=== PATIENT | male | born 1945 | race Caucasian/White ===

== ENCOUNTER 2017-03-05 09:55 | Outpatient (CLI) | payer MEDICARE, OTHER | END 2017-03-05 09:56 | disposition home or self-care (01) | DX: I48.91 Unspecified atrial fibrillation (principal); I10 Essential (primary) hypertension; K21.9 Gastro-esophageal reflux disease without esophagitis; M10.9 Gout, unspecified; Z79.899 Other long term (current) drug therapy ==

== ENCOUNTER 2017-08-10 00:12 | Emergency (ER) | payer MEDICARE, OTHER ==
--- NOTE | 2017-08-10 01:14 | ED Physician Documentation ---
PD HPI HEENT - Stated complaint Stated Complaint: DENTAL PAIN - Chief complaint Chief Complaint: General - History obtained from History obtained from: Patient - History of Present Illness Timing - onset: Yesterday Timing - details: Gradual onset Pain level now: 8 Location: Tooth Improves: Nothing Associated symptoms: No: Fever Similar symptoms before: Has not had sx before - Additional information Additional information: recent dental extraction (3 days ago), had adequate relief with tylenol and ibuprofen, but since last night, gradually worsening uncontrolled pain and sensation of swelling at extraction site Review of Systems Constitutional: denies: Fever Throat: reports: Dental pain / toothache PD PAST MEDICAL HISTORY - Past Medical History Past Medical History: Yes Cardiovascular: Hypertension, Atrial flutter Respiratory: Pneumonia Neuro: None Endocrine/Autoimmune: None GI: GERD, Colon polyps : None HEENT: None Psych: None Musculoskeletal: Gout Derm: None - Past Surgical History Past Surgical History: Yes General: Cholecystectomy, Colonoscopy HEENT: Tonsil/Adenoidectomy - Present Medications Home Medications: Ambulatory Orders Medication Instructions Recorded Confirmed Aspirin [Aspir 81] 81 mg PO DAILY 05/09/14 10/26/14 Hydrochlorothiazide 12.5 mg PO DAILY 05/09/14 10/26/14 Indomethacin [Indocin] 25 mg PO TID PRN 05/09/14 10/26/14 Lisinopril 20 mg DAILY 05/09/14 10/26/14 Esomeprazole Magnesium [Nexium] 20 mg PO DAILY 10/26/14 10/26/14 Clindamycin HCl 300 mg PO Q6HR #27 capsule 08/10/17 Ondansetron HCl [Zofran] 4 mg PO Q6HR PRN #14 tablet 08/10/17 oxyCODONE/ACET 5/325 [Percocet 5 1 - 2 each PO Q6H PRN #20 tablet 08/10/17 mg/325 mg] - Allergies Allergies/Adverse Reactions: Allergies Allergy/AdvReac Type Severity Reaction Status Date / Time No Known Drug Allergies Allergy Verified 08/10/17 00:23 - Social History Does the pt smoke?: No Smoking Status: Never smoker Does the pt drink ETOH?: No Does the pt have substance abuse?: No - Immunizations Immunizations are current?: Yes - POLST Patient has POLST: No PD ED PE NORMAL - Vitals Vital signs reviewed: Yes - General General: Alert and oriented X 3, No acute distress, Well developed/nourished - HEENT HEENT: Moist mucous membranes - Neck Neck: Supple, no meningeal sign PD ED PE EXPANDED - HEENT HEENT: Dry socket (right maxillary first molar) Results - Vitals Vitals: Oxygen O2 Source Room air PD MEDICAL DECISION MAKING - ED course Complexity details: considered differential, d/w patient Departure - Departure Disposition: Home, Self Care Clinical Impression: Dry socket Condition: Good Instructions: ED Socket Dry Prescriptions: Clindamycin HCl 300 mg PO Q6HR #27 capsule Ondansetron HCl [Zofran] 4 mg PO Q6HR PRN #14 tablet PRN Reason: Nausea / Vomiting oxyCODONE/ACET 5/325 [Percocet 5 mg/325 mg] 1 - 2 each PO Q6H PRN #20 tablet PRN Reason: Pain Comments: You need to follow up with your dentist as soon as they can see you. Contact the office when they are next open. Discharge Date/Time: 08/10/17 02:35
[2017-08-10] MEDS ORDERED: oxyCODONE/ACET 5/325 Prepack 4 PO STA (01:53)
[2017-08-10] MEDS ORDERED: ONDANSETRON ODT 4 MG TABLET TL STA (01:53)
[2017-08-10] MEDS ORDERED: CLINDAMYCIN 150 MG CAPSULE PO STA (01:54)
[2017-08-10] MEDS ORDERED: oxyCODONE/ACET 5/325 Prepack 4 PO ONE (02:02)
[2017-08-10] MEDS ORDERED: ONDANSETRON ODT 4 MG TABLET ONE (02:26)
[2017-08-10] MEDS ORDERED: CLINDAMYCIN 150 MG CAPSULE PO ONE (02:27)
[2017-08-10 02:34] VITALS: BP 164/114
== END 2017-08-10 02:35 | disposition home or self-care (01) ==
LOC: ED 00:12
DX: M27.3 Alveolitis of jaws (principal); I10 Essential (primary) hypertension; Z79.82 Long term (current) use of aspirin
CPT/HCPCS: 99283; A9270; Q0162

== ENCOUNTER 2018-09-17 03:17 | Emergency (ER) | payer MEDICARE, OTHER ==
[2018-09-17] MEDS ORDERED: DEXAMETHASONE 10 MG/ML VIAL PO STA (03:51)
[2018-09-17] MEDS ORDERED: INDOMETHACIN 25 MG CAPSULE PO STA (04:23)
--- NOTE | 2018-09-17 04:23 | ED Physician Documentation ---
History of Present Illness - Stated complaint Stated Complaint: L FOOT PAIN - Chief complaint Chief Complaint: Ext Problem - History obtained from History obtained from: Patient - History of Present Illness Timing: How many days ago (3-4) - Additonal information Additional information: 73-year-old male with a long history of gout has had a recent flare several weeks ago and was on some indomethacin and following reduction in the flare he was started on allopurinol. This is his first excursion and allopurinol. He is now experienced a flare of his gout that is less painful and less obvious than his prior flares. He is in the emergency department this morning at 3:30 in the morning unable to sleep. He is recently started the allopurinol he is not takin g any anti-inflammatory at this time. Review of Systems Constitutional: denies: Fever, Chills Eyes: denies: Decreased vision Ears: denies: Ear pain Nose: denies: Congestion Throat: denies: Sore throat Cardiac: denies: Chest pain / pressure, Palpitations Respiratory: denies: Dyspnea, Cough GI: denies: Abdominal Pain, Nausea, Vomiting : denies: Dysuria, Frequency Skin: denies: Rash, Lesions Musculoskeletal: reports: Extremity pain, Joint pain, Pain with weight bearing. denies: Neck pain, Back pain Neurologic: denies: Generalized weakness, Focal weakness, Numbness PD PAST MEDICAL HISTORY - Past Medical History Past Medical History: Yes Cardiovascular: Hypertension, Atrial flutter Respiratory: Pneumonia Endocrine/Autoimmune: None GI: GERD, Colon polyps : None HEENT: None Psych: None Musculoskeletal: Gout Derm: None - Past Surgical History Past Surgical History: Yes General: Cholecystectomy, Colonoscopy HEENT: Tonsil/Adenoidectomy - Present Medications Home Medications: Ambulatory Orders Medication Instructions Recorded Confirmed Lisinopril 40 mg PO DAILY 05/09/14 09/17/18 Esomeprazole Magnesium [Nexium] 20 mg PO DAILY 10/26/14 09/17/18 Allopurinol 1 tab PO DAILY 09/17/18 09/17/18 Diltiazem HCl [Diltiazem 12Hr ER] 1 tab PO DAILY 09/17/18 09/17/18 Indomethacin 25 mg PO TID PRN #40 capsule 09/17/18 Rivaroxaban [Xarelto] 1 tab PO DAILY 09/17/18 09/17/18 amLODIPine [Norvasc] 1 tab PO DAILY 09/17/18 09/17/18 - Allergies Allergies/Adverse Reactions: Allergies Allergy/AdvReac Type Severity Reaction Status Date / Time No Known Drug Allergies Allergy Verified 09/17/18 03:26 - Social History Does the pt smoke?: No Smoking Status: Never smoker Does the pt drink ETOH?: No Does the pt have substance abuse?: No - Immunizations Immunizations are current?: Yes - POLST Patient has POLST: No PD ED PE NORMAL - Vitals Vital signs reviewed: Yes (hypertensive diastolic mild ) - General General: Alert and oriented X 3, No acute distress, Well developed/nourished - HEENT HEENT: Atraumatic, PERRL, EOMI - Respiratory Respiratory: No respiratory distress - Derm Derm: Normal color, Warm and dry, No rash - Extremities Extremities: No deformity, No edema, Other (tenderness to the distal 1st MT on the left foot. There is not much in the way of swelling of the joint or redness to the area. There is specific area of tenderness and no lymphangitic streak. ) - Neuro Neuro: Alert and oriented X 3, advertising rep 2-12 intact, No motor deficit, No sensory deficit, Normal speech Eye Opening: Spontaneous Motor: Obeys Commands Verbal: Oriented GCS Score: 15 - Psych Psych: Normal mood, Normal affect Results - Vitals Vitals: Vital Signs - 24 hr 09/17/18 03:22 Temperature 36.3 C L Heart Rate 89 Respiratory 16 Rate Blood Pressure 125/84 H O2 Saturation 97 Oxygen O2 Source Room air PD MEDICAL DECISION MAKING - ED course Complexity details: reviewed old records, considered differential, d/w patient ED course: 73-year-old male with a 20-year history of gout has recently been placed on allopurinol and he is not on any anti-inflammatory therapy right now. He does appear to have a mild inflammation of the left great toe consistent with a gout attack. 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 I discussed with him that it will take the better part of 1-2 years to entirely reduce his uric acid pool to where he can expect to have no attacks. I suspect will be easy to control his symptoms today. Here in the emergency department he is administered dexamethasone 10 mg orally and 50 mg of indomethacin. He is on an anticoagulant and will place him on 25 mg of indomethacin 3 times daily. Departure - Departure Disposition: 01 Home, Self Care Clinical Impression: Gout attack Qualifiers: Gout site: foot Gout etiology: idiopathic Laterality: left Qualified Code(s): M10.072 - Idiopathic gout, left ankle and foot Condition: Stable Instructions: ED Arthritis Gout, ED Diet Gout Follow-Up: Jayne Johnson MD [Primary Care Provider] - Prescriptions: Indomethacin 25 mg PO TID PRN #40 capsule PRN Reason: gout attack
[2018-09-17 04:38] VITALS: BP 146/89
== END 2018-09-17 04:35 | disposition home or self-care (01) ==
LOC: ED 03:17
DX: M10.072 Idiopathic gout, left ankle and foot (principal); I10 Essential (primary) hypertension; I48.92 Unspecified atrial flutter; Z79.01 Long term (current) use of anticoagulants
CPT/HCPCS: 99283; A9270

== ENCOUNTER 2020-08-02 13:54 | Outpatient (CLI) | payer MEDICARE, OTHER | END 2020-08-02 13:55 | disposition home or self-care (01) | LOC: COV 13:54 | PROVIDERS: ATTEND Family Medicine | DX: R05 Cough (principal); J02.9 Acute pharyngitis, unspecified; R09.81 Nasal congestion; Z20.828 Contact with and (suspected) exposure to other viral communicable diseases ==

== ENCOUNTER 2021-01-23 13:30 | Outpatient (CLI) | payer MEDICARE, OTHER ==
--- NOTE | 2021-01-23 14:30 | XRAY Report ---
PROCEDURE: Chest 2 View X-Ray INDICATIONS: COUGH TECHNIQUE: 2 view(s) of the chest. COMPARISON: None. FINDINGS: Surgical changes and devices: None. Lungs and pleura: No pleural effusions or pneumothorax. Lungs are clear. Mediastinum: Mediastinal contours are normal. Heart size is normal. Bones and chest wall: No suspicious bony abnormalities. Soft tissues appear unremarkable. IMPRESSION: Source of cough is not found. Reviewed by: Karthik Way MD on 01/23/2021 2:28 PM PDT Approved by: Karthik Way MD on 01/23/2021 2:28 PM PDT Station ID: [id number]
== END 2021-01-23 13:31 | disposition home or self-care (01) ==
LOC: DI 13:30
PROVIDERS: ATTEND Internal Medicine
DX: R05 Cough (principal)

== ENCOUNTER 2021-06-02 11:14 | Outpatient (CLI) | payer MEDICARE, OTHER | END 2021-06-02 11:15 | disposition critical access hospital (66) | LOC: EMS 11:14 | DX: R42 Dizziness and giddiness (principal); H53.8 Other visual disturbances | CPT/HCPCS: A0425; A0429 ==

== ENCOUNTER 2021-06-02 11:34 | Emergency (ER) | payer MEDICARE, OTHER ==
[2021-06-02 12:15] LABS: BASOPHILS # (AUTO) 0.1 10^3/uL (0.0-0.1); BASOPHILS % (AUTO) 0.7 %; EOSINOPHILS # (AUTO) 0.3 10^3/uL (0.0-0.7); EOSINOPHILS % (AUTO) 2.9 %; HGB - HEMOGLOBIN 17.3 g/dL (14.0-18.0); LYMPHOCYTES # (AUTO) 2.5 10^3/uL (1.5-3.5); MEAN CORPUSCULAR HEMOGLOBIN 32.7 pg (27.0-31.0); MEAN CORPUSCULAR HGB CONC 33.9 g/dL (32.0-36.0); MEAN CORPUSCULAR VOLUME 96.4 fL (80.0-94.0); MEAN PLATELET VOLUME 10.8 fL (7.4-11.4); MONOCYTES # (AUTO) 0.8 10^3/uL (0.0-1.0); NEUTROPHILS # (AUTO) 7.2 10^3/uL (1.5-6.6); NEUTROPHILS % (AUTO) 65.9 %; PLT - PLATELET COUNT 239 10^3/uL (130-450); RED BLOOD COUNT 5.29 10^6/uL (4.70-6.10); RED CELL DISTRIBUTION WIDTH 14.2 % (12.0-15.0); WHITE BLOOD COUNT 10.9 x10^3/uL (4.8-10.8)
--- NOTE | 2021-06-02 12:18 | ED Physician Documentation ---
History of Present Illness - Stated complaint Stated Complaint: VERTIGO - Chief complaint Chief Complaint: Neuro - Additonal information Additional information: 75-year-old male who has a history of atrial fib anticoagulated on Xarelto presents to the emergency department with multiple near syncopal episodes this morning. He reports that when he woke up and was in the washroom he felt like his vision was going black and that he may faint. He had a similar symptom when he was bending over to package pick up something from the ground. Often he will have pink dots in both of his visual faria. He denies that he is having chest pain or shortness of air. He denies that he feels like the room is spinning but he does find that sometimes the sensation of wanting to faint gets worse with exertion or when he turns his head. He denies chest pain, shortness of air. No unilateral leg swelling. Some nausea but no vomiting. No recent diarrhea or urinary symptoms. He is fully vaccinated for COVID-19. He has no history of similar in the past. He is a former smoker quitting 30 years ago. Denies alcohol or drug use. No focal neuro deficits. Speech is fluid Review of Systems Constitutional: denies: Fever, Chills Eyes: reports: Other (? scotom). denies: Loss of vision Ears: reports: Reviewed and negative Cardiac: reports: Reviewed and negative Respiratory: reports: Reviewed and negative GI: reports: Nausea. denies: Abdominal Pain, Vomiting, Diarrhea : reports: Reviewed and negative Skin: reports: Reviewed and negative Musculoskeletal: reports: Reviewed and negative PD PAST MEDICAL HISTORY - Past Medical History Cardiovascular: Hypertension, Atrial flutter Respiratory: Pneumonia Endocrine/Autoimmune: None GI: GERD, Colon polyps : None HEENT: None Psych: None Musculoskeletal: Gout Derm: None - Past Surgical History Past Surgical History: Yes General: Cholecystectomy, Colonoscopy HEENT: Tonsil/Adenoidectomy - Present Medications Home Medications: Ambulatory Orders Medication Instructions Recorded Confirmed Lisinopril 40 mg PO DAILY 05/09/14 06/02/21 Esomeprazole Magnesium [Nexium] 20 mg PO DAILY 10/26/14 06/02/21 Diltiazem HCl [Diltiazem 12Hr ER] 1 tab PO DAILY 09/17/18 06/02/21 Indomethacin 25 mg PO TID PRN #40 capsule 09/17/18 Rivaroxaban [Xarelto] 1 tab PO DAILY 09/17/18 06/02/21 allopurinoL [Allopurinol] 1 tab PO DAILY 09/17/18 06/02/21 amLODIPine [Norvasc] 1 tab PO DAILY 09/17/18 09/17/18 - Allergies Allergies/Adverse Reactions: Allergies Allergy/AdvReac Type Severity Reaction Status Date / Time No Known Drug Allergies Allergy Verified 06/02/21 11:48 - Social History Does the pt smoke?: No Smoking Status: Never smoker Does the pt drink ETOH?: No Does the pt have substance abuse?: No - Immunizations Immunizations are current?: Yes - POLST Patient has POLST: No PD ED PE EXPANDED - General General: Alert, No acute distress, Well developed/nourished - Neck Neck: Supple w/out meningeal sx. No: Adenopathy - Cardiac Cardiac: Irregularly irregular, Radial strong equal, Pedal strong equal, Cap refill < 2 sec. No: Murmur Present - Respiratory Respiratory: Clear to ausultation zoey. No: Distress, Labored - Abdomen Abdomen: Normal Bowel sounds. No: Tender to palpation - Derm Derm: Normal color, Warm and dry. No: Rash - Neuro Neuro: Alert and Oriented X 3, CNII-XII intact, Normal gait, Normal finger nose, Normal speech. No: Nystagmus - GCS Eye Opening: Spontaneous Motor: Obeys Commands Verbal: Oriented Total: 15 Results - Vitals Vitals: Vital Signs - 24 hr 06/02/21 06/02/21 06/02/21 11:37 12:28 13:14 Temperature 36.4 C L Heart Rate 74 76 Heart Rate [ Sitting] Heart Rate [ Standing] Heart Rate [ Supine] Respiratory 21 11 L Rate Blood Pressure 154/127 H 162/121 H Blood Pressure [Sitting] Blood Pressure [Standing] Blood Pressure [Supine] O2 Saturation 95 96 06/02/21 14:06 Temperature Heart Rate Heart Rate [ 93 Sitting] Heart Rate [ 90 Standing] Heart Rate [ 87 Supine] Respiratory Rate Blood Pressure Blood Pressure 172/107 H [Sitting] Blood Pressure 177/124 H [Standing] Blood Pressure 178/121 H [Supine] O2 Saturation Oxygen O2 Source Room air - EKG (time done) 1155 Rate: Rate (enter#) (81) Rhythm: Atrial fibrillation Intervals: Prolonged QT QRS: Normal Ischemia: Q waves (inferior) Compare to prior EKG: Unchanged from prior EKG Computer interpretation: Agree with computer - Labs Labs: Laboratory Tests 06/02/21 06/02/21 06/02/21 12:12 12:12 12:12 WBC 10.9 H RBC 5.29 Hgb 17.3 Hct 51.0 MCV 96.4 H MCH 32.7 H MCHC 33.9 RDW 14.2 Plt Count 239 MPV 10.8 Neut # (Auto) 7.2 H Lymph # (Auto) 2.5 [place] # (Auto) 0.8 Eos # (Auto) 0.3 Baso # (Auto) 0.1 Absolute Nucleated RBC 0.00 Nucleated RBC % 0.0 Sodium 137 Potassium 4.1 Chloride 108 Carbon Dioxide 23 Anion Gap 6.0 BUN 21 H Creatinine 1.1 Estimated GFR (MDRD) 65 L Glucose 114 H Calcium 9.3 Total Bilirubin 1.8 H AST 23 ALT 28 Alkaline Phosphatase 61 Troponin I High Sens B-Natriuretic Peptide 67 Total Protein 6.9 Albumin 3.9 Globulin 3.0 Albumin/Globulin Ratio 1.3 Lipase 23 06/02/21 12:12 WBC RBC Hgb Hct MCV MCH MCHC RDW Plt Count MPV Neut # (Auto) Lymph # (Auto) [place] # (Auto) Eos # (Auto) Baso # (Auto) Absolute Nucleated RBC Nucleated RBC % Sodium Potassium Chloride Carbon Dioxide Anion Gap BUN Creatinine Estimated GFR (MDRD) Glucose Calcium Total Bilirubin AST ALT Alkaline Phosphatase Troponin I High Sens 6.4 B-Natriuretic Peptide Total Protein Albumin Globulin Albumin/Globulin Ratio Lipase - Rads (name of study) angio neck Radiology: Final report received (Potential dissection flap seen within the left carotid artery though patient does not have a history of carotid enterectomy. Differential diagnosis also includes flow artifact.) angio head Radiology: Final report received (No intracranial hemorrhage is seen. No significant intracranial abnormality is seen. No imaging explanation is found for the patient's presenting symptoms.) cxr Radiology: Final report received (no acute cardiopulmonary process) us carotid Radiology: See rad report, Other (per UStechnologist no significant stenosis is seen. No findings suggestive of carotid dissection.) PD MEDICAL DECISION MAKING - ED course Complexity details: reviewed results, re-evaluated patient ED course: 75-year-old male presents to the emergency department for evaluation of multiple near syncopal episodes this morning in which he felt like his vision was going black. However he also had episodes of scotoma in his bilateral visual faria. He does have a history of atrial fibrillation and is on Xarelto. He did not have any apparent focal neuro deficits. EKG was non-ischemic showing previously noted atrial fib. Screening labs indicate that he is likely somewhat dehydrated given concentrated hemogram as well as elevated BUN. Patient was repleted with 2 L of crystalloid here in the emergency department. Orthostatic vital signs were completed without any orthostatic changes. CT angio of the head and neck did not show any lesions or bleeding however there was concern that he could have a carotid dissection of the left carotid artery. The radiologist thought he may have had a previous carotid enterectomy but the patient denies this history. In order to ascertain if there is in fact a carotid dissection and ultrasound of the carotid arteries will be completed. 1630: Ultrasound bilateral carotids has been completed. Per medical office technologist no findings for significant stenosis and no findings to suggest carotid dissection. This gentleman was ambulated in the hallway with no difficulty. He had no return of the symptoms suggestive of presyncope. I do suspect that he was likely dehydrated given the hemoconcentration of his hemoglobin as well as elevated BUN. Again he has been repleted with 2 L of fluid here in the emergency department. I recommended close follow-up with his primary care provider at home. I did recommend an outpatient echocardiogram to be completed within the next week to 2. Patient is to return to the ER for worsening symptoms or any syncopal episodes development of chest pain or shortness of air. Departure - Departure Disposition: 01 Home, Self Care Clinical Impression: Near syncope Condition: Stable Record reviewed to determine appropriate education?: Yes Instructions: ED Near Syncope Unkn Comments: You were seen in the ER today for near fainting episodes. The CT angiograms of your head did not show any worrisome findings. We did do an ultrasound of your carotid arteries to make sure that there was no dissection or aneurysm development of the carotid arteries and that was also negative. Your labs indicated that you are likely fairly dehydrated which is the most likely cause of your near fainting episodes. Please try and stay well-hydrated at home. Your urine should be a pale yellow. Try to drink at least 2 L of fluid a day if you are able. These follow-up with Dr. Johnson next week. I do recommend that you get an outpatient echocardiogram of your heart. If at any point you have development of chest pain, have any fainting episodes or feel that your symptoms are worsening please return to the ER for a second evaluation.
[2021-06-02 12:30] LABS: ALBUMIN 3.9 g/dL (3.2-5.5); ALBUMIN/GLOBULIN RATIO 1.3 (1.0-2.2); BILIRUBIN,TOTAL 1.8 mg/dL (0.2-1.0); CALCIUM 9.3 mg/dL (8.5-10.3); CREATININE 1.1 mg/dL (0.6-1.2); POTASSIUM 4.1 mmol/L (3.5-5.0); TOTAL PROTEIN 6.9 g/dL (6.7-8.2)
--- NOTE | 2021-06-02 12:54 | XRAY Report ---
PROCEDURE: Chest 1 View X-Ray INDICATIONS: Chest Pain TECHNIQUE: One view of the chest was acquired. COMPARISON: 01/23/2021 FINDINGS: Surgical changes and devices: None. Lungs and pleura: No pleural effusions or pneumothorax. Low lung volumes. Scattered subsegmental s carring/atelectasis. No acute consolidation. Mediastinum: Mediastinal contours appear normal. Heart size is normal. Bones and chest wall: No suspicious bony lesions. Overlying soft tissues appear unremarkable. IMPRESSION: Scattered subsegmental scarring/atelectasis. No acute consolidation. Low lung volumes. Reviewed by: Tyler Khalil MD on 06/02/2021 12:52 PM PDT Approved by: Tyler Khalil MD on 06/02/2021 12:52 PM PDT Station ID: [id number]
[2021-06-02] MEDS: SODIUM CHLORIDE 0.9% 1,000 ML IV STA ×2 (13:08→14:09)
[2021-06-02] MEDS: IOPAMIDOL-300 100 ML VIAL IVP ONE (13:15)
--- NOTE | 2021-06-02 13:31 | CT Report ---
PROCEDURE: ANGIO HEAD W/WO INDICATIONS: L sided facial droop CONTRAST: IV CONTRAST: Isovue 300 ml: 80 PO CONTRAST: *NO PO CONTRAST TECHNIQUE: Precontrast 4.5 mm thick angled axial sections acquired from the foramen magnum to the vertex. Afte r the administration of intravenous contrast, 1 mm thick sections acquired through the [place] is. Postcontrast 4.5 mm thick sections then re-acquired from the foramen magnum to the vertex. 3-di mensional [id number] (MIP) and/or volume rendering reformats were acquired of the c entral intracranial vasculature. For radiation dose reduction, the following was used: automated ex posure control, adjustment of mA and/or kV according to patient size. COMPARISON: Correlation is made with the accompanying neck CT angiogram, 06/02/2021. FINDINGS: Image quality: There is streak artifact seen through the skull base. Anterior circulation: Intracranial internal carotid arteries are normal in size and flow. The flow within the paired anterior cerebral arteries is normal and symmetric. The flow within the middle cer ebral arteries is normal and symmetric. The anterior communicating artery is seen. No aneurysms are seen. Posterior circulation: Visualized portions of the vertebral arteries demonstrate normal caliber. Th e right vertebral artery largely terminates in the right posterior inferior cerebral artery. There is a normal appearing basilar artery. Incidental note is made of a prominent left posterior communicat ing artery, with a diminutive left P1 segment. This is attributed to a type origin of the left posterior cerebral artery, which is considered to be a developmental variant of typically no clinical consequence. Flow within the posterior cerebral arteries is normal and symmetric. No aneurysms ar e seen. CSF spaces: Ventricles are normal in size and shape. Basal cisterns are patent. No extra-axial flu id collections. Brain: No midline shift. No intracranial bleeds or masses. Resendiz-white matter interface appears int act. In this patient with this given history, scrutiny is given to the course of the left facial nerves, i ncluding within the left parotid gland. No masses or abnormal enhancement can be seen to the limits o f CT within these regions. Skull and face: Calvarium and facial bones appear intact, without suspicious lesions. Sinuses: Visualized sinuses and mastoids are clear. IMPRESSION: No intracranial hemorrhage is seen. No significant intracranial abnormality is seen. No imaging explanation is found for the patient's presenting symptoms. No luis facial nerve abnormal ities or parotid masses can be seen. If it would be helpful for clinical management decision making, please consider a dedicated brain MRI (IAC protocol, without and with contrast) for further evaluation (assuming that there is no contrain dication). [place] developmental anomalies are incidentally noted, which are not considered to be clini makayla significant. Note: Case discussed by telephone with Estela Mitchell at 12:27 PM [place] time on 06/02/2021. Reviewed by: Cristian Carrasco MD on 06/02/2021 12:30 PM ESTEFANÍA Approved by: Cristian Carrasco MD on 06/02/2021 12:30 PM [id number] Station ID: [id number]
--- NOTE | 2021-06-02 13:34 | CT Report ---
PROCEDURE: ANGIO NECK W INDICATIONS: L sided facial droop, L neck pain CONTRAST: IV CONTRAST: Isovue 300 ml: 80 PO CONTRAST: *NO PO CONTRAST TECHNIQUE: After the administration of intravenous contrast, 1.5 mm axial sections acquired from the aortic arch to the [place]. Coronal 3-D maximum intensity projection (MIP) and/or volume rendering ref ormats were then performed. For radiation dose reduction, the following was used: automated exposur e control, adjustment of mA and/or kV according to patient size. COMPARISON: Correlation is made with the accompanying head CT angiogram, 06/02/2021. FINDINGS: Image quality: Excellent. Carotid system: The great vessels demonstrate a conventional anatomy as they arise from the aortic a rch. The origins of the common carotid arteries appear patent. The common carotid arteries demonstr ate normal calibers and courses. There is apparent left carotid endarterectomy. Within the carotid endarterectomy site, there is a pot ential dissection flap seen, as on series 5 image 67. Flow is seen on both sides of the apparent diss ection flap. Just distal to the apparent carotid endarterectomy change, there is approximately 50% st enosis, as on series 5 image 72. The right internal carotid artery demonstrates no significant stenosis. Posterior circulation: The origins of the vertebral arteries appear patent. The more superior porti ons of the vertebral arteries demonstrate normal course and caliber. The left vertebral artery is dom inant to the right. Soft tissues: Visualized neck soft tissues demonstrate no suspicious abnormalities. The thyroid is normal in size and there are no incidental findings. Bones: No suspicious bony lesions. Visualized cervical spine appears normally aligned. Moderate ce rvical spine degenerative changes are seen. IMPRESSION: Apparent left carotid endarterectomy, with a potential dissection flap seen within the endarterectomy bed. Differential diagnosis would also include flow artifact. Note: Case discussed by telephone with Emily Mitchell at 12:27 PM [place] time on 06/02/2021. The estimate of stenosis included in the report of the imaging study was calculated using the NASCET method Reviewed by: Cristian Carrasco MD on 06/02/2021 12:32 PM AKDT Approved by: Cristian Carrasco MD on 06/02/2021 12:32 PM AKDT Station ID: [id number]
[2021-06-02 14:27] VITALS: BP 178/121
--- NOTE | 2021-06-02 16:57 | Ultrasound Report ---
PROCEDURE: Carotid Doppler Complete INDICATIONS: ? dissection on CTA left carotid TECHNIQUE: Color and pulse Doppler interrogation was performed of both carotid systems, with image documentation and velocity measurements. COMPARISON: CTA head and neck from the same date. FINDINGS: Bilateral plaque is present without hemodynamically significant stenosis. Right side: Brachial blood pressure: 163/133 mm Hg. Common carotid artery peak systolic velocity: 73.5 cm/sec. Internal carotid artery peak systolic velocity: 54.6 cm/sec. Internal carotid artery end diastolic velocity: 24.7 cm/sec. External carotid artery peak systolic velocity: 56.4 cm/sec. ICA/CCA peak systolic ratio: 0.7 . Resendiz scale imaging description: Mild plaque without significant stenosis. Percent internal carotid artery stenosis: Mild, less than 50% . Vertebral artery: Flow direction is antegrade. Left side: Brachial blood pressure: 160/133 mm Hg. Common carotid artery peak systolic velocity: 114.9 cm/sec. Internal carotid artery peak systolic velocity: 48.7 cm/sec. Internal carotid artery end diastolic velocity: 21.6 cm/sec. External carotid artery peak systolic velocity: 42.9 cm/sec. ICA/CCA peak systolic ratio: 0.4 . Resendiz scale imaging description: Mild plaque without significant stenosis. Specifically, no dissectio n noted. Percent internal carotid artery stenosis: Mild, less than 50% . Vertebral artery: Flow direction is antegrade. IMPRESSION: No evidence of left carotid dissection. Mild bilateral plaque. Less than 50% bilateral internal carot id artery stenosis. The estimate of stenosis included in the report of the imaging study was calculated using the NASCET method Reviewed by: Refugio Amos MD on 06/02/2021 4:55 PM PDT Approved by: Refugio Amos MD on 06/02/2021 4:55 PM PDT Station ID: [id number]
== END 2021-06-02 17:03 | disposition home or self-care (01) ==
LOC: EDUNIT# → ED 11:34
DX: R55 Syncope and collapse (principal); I48.91 Unspecified atrial fibrillation; Z79.01 Long term (current) use of anticoagulants
CPT/HCPCS: 36415; 70496; 70498; 71045; 80053; 83690; 83880; 84484; 85025; 93005; 93880; 99284; Q9967

== ENCOUNTER 2021-06-05 08:43 | Emergency (ER) | payer MEDICARE, OTHER ==
[2021-06-05 09:21] LABS: BASOPHILS # (AUTO) 0.1 10^3/uL (0.0-0.1); BASOPHILS % (AUTO) 0.5 %; EOSINOPHILS # (AUTO) 0.4 10^3/uL (0.0-0.7); EOSINOPHILS % (AUTO) 3.6 %; HCT - HEMATOCRIT 51.7 % (42.0-52.0); HGB - HEMOGLOBIN 17.4 g/dL (14.0-18.0); LYMPHOCYTES # (AUTO) 2.7 10^3/uL (1.5-3.5); LYMPHOCYTES % (AUTO) 24.6 %; MEAN CORPUSCULAR HEMOGLOBIN 32.3 pg (27.0-31.0); MEAN CORPUSCULAR HGB CONC 33.7 g/dL (32.0-36.0); MEAN CORPUSCULAR VOLUME 96.1 fL (80.0-94.0); MEAN PLATELET VOLUME 10.9 fL (7.4-11.4); MONOCYTES # (AUTO) 0.9 10^3/uL (0.0-1.0); MONOCYTES % (AUTO) 8.3 %; NEUTROPHILS # (AUTO) 6.9 10^3/uL (1.5-6.6); NEUTROPHILS % (AUTO) 62.5 %; PLT - PLATELET COUNT 251 10^3/uL (130-450); RED BLOOD COUNT 5.38 10^6/uL (4.70-6.10); RED CELL DISTRIBUTION WIDTH 14.4 % (12.0-15.0)
--- NOTE | 2021-06-05 09:32 | XRAY Report ---
PROCEDURE: Chest 1 View X-Ray INDICATIONS: Chest pain TECHNIQUE: One view of the chest was acquired. COMPARISON: 06/02/2021 FINDINGS: Surgical changes and devices: None. Lungs and pleura: No pleural effusions or pneumothorax. Submaximal inspiration. Patchy bibasilar ate lectasis and possible patchy bilateral infiltrates. Mediastinum: Mediastinal contours appear normal. Heart size is normal. Bones and chest wall: No suspicious bony lesions. Overlying soft tissues appear unremarkable. IMPRESSION: Post reduction. Patchy bibasilar atelectasis and possible patchy bibasilar infiltrates. Comment: If there is clinical suspicion of viral pneumonia, chest CT may be helpful. Reviewed by: Refugio Amos MD on 06/05/2021 9:31 AM PDT Approved by: Refugio Amos MD on 06/05/2021 9:31 AM PDT Station ID: [id number]
[2021-06-05 09:37] LABS: ALBUMIN 3.9 g/dL (3.2-5.5); ALBUMIN/GLOBULIN RATIO 1.2 (1.0-2.2); BILIRUBIN,TOTAL 0.9 mg/dL (0.2-1.0); CALCIUM 9.2 mg/dL (8.5-10.3); CREATININE 1.3 mg/dL (0.6-1.2); POTASSIUM 4.1 mmol/L (3.5-5.0); TOTAL PROTEIN 7.1 g/dL (6.7-8.2)
[2021-06-05] MEDS: SODIUM CHLORIDE 0.9% 1,000 ML IV STA (10:26)
[2021-06-05] MEDS: diazePAM INJ 5 MG/ML SYRINGE IVP STA (10:26)
[2021-06-05] MEDS: MECLIZINE 12.5 MG TABLET PO STA (10:34)
--- NOTE | 2021-06-05 10:36 | ED Physician Documentation ---
History of Present Illness - Stated complaint Stated Complaint: DIZZY - Chief complaint Chief Complaint: Neuro - History obtained from History obtained from: Patient - Additonal information Additional information: Patient comes to the emergency department with chief complaint of dizziness. He was just seen here a few days ago for this, but thinks that he perhaps described his symptoms wrong. He states that really, his symptoms are a spinning when he turns his head, changes position, or stands up. He states as long as he is sitting still, he feels fine. He states he has tinnitus in his left ear which is also new. He has never had any of the symptoms before a few weeks ago. Patient denies any recent illness. He was worked up extensively last time he was here, including was CTAs of the head and neck and ultrasound of the carotids. The patient states that he has to struggle to get his bearings when he moves because the vertigo is so intense. Nausea vomiting. No headache. No focal weakness. No visual changes. No other complaints at this time. Review of Systems Ten Systems: 10 systems reviewed and negative Constitutional: reports: Reviewed and negative Eyes: reports: Reviewed and negative Ears: reports: Reviewed and negative Nose: reports: Reviewed and negative Throat: reports: Reviewed and negative Cardiac: reports: Reviewed and negative Respiratory: reports: Reviewed and negative GI: reports: Reviewed and negative : reports: Reviewed and negative Skin: reports: Reviewed and negative Musculoskeletal: reports: Reviewed and negative Neurologic: reports: Other (Dizziness) Psychiatric: reports: Reviewed and negative Endocrine: reports: Reviewed and negative Immunocompromised: reports: Reviewed and negative PD PAST MEDICAL HISTORY - Past Medical History Cardiovascular: Hypertension, Atrial flutter Respiratory: Pneumonia Endocrine/Autoimmune: None GI: GERD, Colon polyps : None HEENT: None Psych: None Musculoskeletal: Gout Derm: None - Past Surgical History Past Surgical History: Yes General: Cholecystectomy, Colonoscopy HEENT: Tonsil/Adenoidectomy - Present Medications Home Medications: Ambulatory Orders Medication Instructions Recorded Confirmed Lisinopril 40 mg PO DAILY 05/09/14 06/05/21 Esomeprazole Magnesium [Nexium] 20 mg PO DAILY 10/26/14 06/05/21 Diltiazem HCl [Diltiazem 12Hr ER] 1 tab PO DAILY 09/17/18 06/05/21 Indomethacin 25 mg PO TID PRN #40 capsule 09/17/18 06/05/21 Rivaroxaban [Xarelto] 1 tab PO DAILY 09/17/18 06/05/21 allopurinoL [Allopurinol] 1 tab PO DAILY 09/17/18 06/05/21 amLODIPine [Norvasc] 1 tab PO DAILY 09/17/18 06/05/21 Meclizine HCl [Motion Sickness] 25 mg PO Q6HR PRN #20 tablet 06/05/21 - Allergies Allergies/Adverse Reactions: Allergies Allergy/AdvReac Type Severity Reaction Status Date / Time No Known Drug Allergies Allergy Verified 06/05/21 09:06 - Social History Does the pt smoke?: No Smoking Status: Never smoker Does the pt drink ETOH?: No Does the pt have substance abuse?: No - Immunizations Immunizations are current?: Yes - POLST Patient has POLST: No PD ED PE NORMAL - Vitals Vital signs reviewed: Yes - General General: Alert and oriented X 3, No acute distress, Well developed/nourished - HEENT HEENT: Atraumatic, PERRL, EOMI, Moist mucous membranes - Neck Neck: Supple, no meningeal sign - Cardiac Cardiac: RRR, No murmur, Strong equal pulses - Respiratory Respiratory: No respiratory distress, Clear bilaterally - Abdomen Abdomen: Soft, Non tender, Non distended - Derm Derm: Normal color, Warm and dry, No rash - Extremities Extremities: No deformity, No edema, No calf tenderness / cord - Neuro Neuro: Alert and oriented X 3, boilermaker assembly and erection 2-12 intact, No motor deficit, No sensory deficit, Normal speech - Psych Psych: Normal mood, Normal affect Results - Vitals Vitals: Vital Signs - 24 hr 06/05/21 06/05/21 06/05/21 08:45 09:42 10:10 Temperature 36 C L Heart Rate 81 81 74 Respiratory 16 10 L 13 Rate Blood Pressure 152/103 H 145/107 H 142/113 H O2 Saturation 95 95 97 06/05/21 06/05/21 11:24 11:47 Temperature Heart Rate 61 86 Respiratory 15 11 L Rate Blood Pressure 144/102 H 139/98 H O2 Saturation 95 98 Oxygen O2 Source Room air - Labs Labs: Laboratory Tests 06/05/21 06/05/21 06/05/21 09:15 09:15 09:15 WBC 11.0 H RBC 5.38 Hgb 17.4 Hct 51.7 MCV 96.1 H MCH 32.3 H MCHC 33.7 RDW 14.4 Plt Count 251 MPV 10.9 Neut # (Auto) 6.9 H Lymph # (Auto) 2.7 [place] # (Auto) 0.9 Eos # (Auto) 0.4 Baso # (Auto) 0.1 Absolute Nucleated RBC 0.00 Nucleated RBC % 0.0 Sodium 139 Potassium 4.1 Chloride 109 Carbon Dioxide 22 Anion Gap 8.0 BUN 22 H Creatinine 1.3 H Estimated GFR (MDRD) 54 L Glucose 106 H Calcium 9.2 Total Bilirubin 0.9 AST 24 ALT 32 Alkaline Phosphatase 69 Troponin I High Sens 8.1 Total Protein 7.1 Albumin 3.9 Globulin 3.2 Albumin/Globulin Ratio 1.2 Lipase 26 PD MEDICAL DECISION MAKING - ED course Complexity details: reviewed old records, reviewed results, re-evaluated patient, considered differential, d/w patient ED course: Patient was sent treated symptomatically with IV fluids, meclizine and Valium, after which he was found to beeling much better. He was able to ambulate with his walker. We have discussed symptomatic management at home and the usual indications for return. Departure - Departure Disposition: 01 Home, Self Care Clinical Impression: Benign positional vertigo Condition: Stable Instructions: ED BPV Vertigo Prescriptions: Meclizine HCl [Motion Sickness] 25 mg PO Q6HR PRN #20 tablet PRN Reason: Vertigo Comments: All of your studies from a few days ago and today look good. You have been given medicine to help with your vertigo, which is most likely coming from your inner ear. Please take the medication as needed. You should follow-up with your primary care physician for further evaluation if you continue to have vertigo for more than the next couple of weeks. Discharge Date/Time: 06/05/21 12:06
[2021-06-05 11:48] VITALS: BP 139/98
== END 2021-06-05 12:06 | disposition home or self-care (01) ==
LOC: ED 08:43
DX: H81.10 Benign paroxysmal vertigo, unspecified ear (principal)
CPT/HCPCS: 36415; 71045; 80053; 83690; 84484; 85025; 93005; 96374; 99284; A9270

== ENCOUNTER 2021-09-05 06:49 | Outpatient (CLI) | payer MEDICARE, OTHER ==
[2021-09-05 07:29] LABS: BASOPHILS # (AUTO) 0.1 10^3/uL (0.0-0.1); BASOPHILS % (AUTO) 0.6 %; EOSINOPHILS # (AUTO) 0.3 10^3/uL (0.0-0.7); EOSINOPHILS % (AUTO) 2.7 %; HCT - HEMATOCRIT 52.8 % (42.0-52.0); HGB - HEMOGLOBIN 17.6 g/dL (14.0-18.0); LYMPHOCYTES # (AUTO) 3.1 10^3/uL (1.5-3.5); LYMPHOCYTES % (AUTO) 25.3 %; MEAN CORPUSCULAR HGB CONC 33.3 g/dL (32.0-36.0); MEAN CORPUSCULAR VOLUME 98.9 fL (80.0-94.0); MEAN PLATELET VOLUME 10.8 fL (7.4-11.4); MONOCYTES # (AUTO) 0.9 10^3/uL (0.0-1.0); MONOCYTES % (AUTO) 7.6 %; NEUTROPHILS # (AUTO) 7.8 10^3/uL (1.5-6.6); NEUTROPHILS % (AUTO) 63.2 %; PLT - PLATELET COUNT 282 10^3/uL (130-450); RED BLOOD COUNT 5.34 10^6/uL (4.70-6.10); RED CELL DISTRIBUTION WIDTH 14.6 % (12.0-15.0); WHITE BLOOD COUNT 12.3 x10^3/uL (4.8-10.8)
[2021-09-05 07:46] LABS: ALBUMIN 4.2 g/dL (3.2-5.5); ALBUMIN/GLOBULIN RATIO 1.3 (1.0-2.2); ALKALINE PHOSPHATASE 69 IU/L (42-121); ALT ALANINE AMINOTRANSFERASE 27 IU/L (10-60); AST ASPARTATE AMINOTRANSFERASE 21 IU/L (10-42); BILIRUBIN,TOTAL 1.2 mg/dL (0.2-1.0); BUN - BLOOD UREA NITROGEN 24 mg/dL (6-20); CALCIUM 9.6 mg/dL (8.5-10.3); CARBON DIOXIDE - CO2 25 mmol/L (21-32); CHLORIDE 106 mmol/L (101-111); CHOL/HDL RATIO 5.7 (<5.0); CHOLESTEROL 188 mg/dL; CREATININE 1.2 mg/dL (0.6-1.2); GFR - MDRD 59 (>89); GLUCOSE 118 mg/dL (70-100); HDL CHOLESTEROL 33 mg/dL; LDL CHOLESTEROL,CALCULATED 124 mg/dL; LDL/HDL RATIO 3.8 (<3.6); POTASSIUM 4.3 mmol/L (3.5-5.0); SODIUM 141 mmol/L (135-145); TOTAL PROTEIN 7.4 g/dL (6.7-8.2); TRIGLYCERIDES 156 mg/dL; VLDL CHOLESTEROL 31 mg/dL
[2021-09-05 07:58] LABS: THYROID STIMULATING HORMONE 2.59 uIU/mL (0.34-5.60)
[2021-09-05 08:09] LABS: FOLATE 24.73 ng/mL (5.90 - >24.8)
[2021-09-05 09:20] LABS: ESTIMATED AVERAGE GLUCOSE 128 mg/dL (70-100); HEMOGLOBIN A1c% 6.1 % (4.27-6.07)
== END 2021-09-05 06:50 | disposition home or self-care (01) ==
LOC: LAB.S 06:49 → LAB 06:50
PROVIDERS: ATTEND Internal Medicine
DX: I10 Essential (primary) hypertension (principal); R20.0 Anesthesia of skin; Z79.899 Other long term (current) drug therapy; R73.9 Hyperglycemia, unspecified; K21.9 Gastro-esophageal reflux disease without esophagitis; M10.9 Gout, unspecified; D75.89 Other specified diseases of blood and blood-forming organs
CPT/HCPCS: 36415; 80053; 80061; 82607; 82746; 83036; 83721; 84443; 85025

== ENCOUNTER 2021-11-17 12:46 | Day surgery (SDC) | payer MEDICARE, OTHER ==
[2021-11-17] MEDS ORDERED: LACTATED RINGERS 1,000 ML IV ONE ×2 (12:52→14:02)
--- NOTE | 2021-11-17 13:38 | ANESTHESIA ---
Pre-Anesthesia VS, & Labs - Diagnosis GERD - Procedure EGD Vital Signs: Temp Pulse Resp BP Pulse Ox 36.0 C L 84 13 158/119 H 97 11/17/21 13:04 11/17/21 13:04 11/17/21 13:04 11/17/21 13:04 11/17/21 13:04 Height: 6 ft 2 in Weight (kg): 99.2 kg Body Mass Index: 28.0 BMI Classification: Overweight - NPO >8 hours - Lab Results Lab results reviewed: Yes Home Medications and Allergies Lisinopril 40 mg PO DAILY 05/09/14 Esomeprazole Magnesium [Nexium] 20 mg PO DAILY 10/26/14 Diltiazem HCl [Diltiazem 12Hr ER] 1 tab PO DAILY 09/17/18 Rivaroxaban [Xarelto] 1 tab PO DAILY 09/17/18 allopurinoL [Allopurinol] 1 tab PO DAILY 09/17/18 amLODIPine [Norvasc] 1 tab PO DAILY 09/17/18 Allergies/Adverse Reactions: Allergies Allergy/AdvReac Type Severity Reaction Status Date / Time No Known Drug Allergies Allergy Verified 11/17/21 13:15 Anes History & Medical History - Anesthetic History Anesthesia Complications: reports: No previous complications Family history of Anesthesia Complications: Denies Family history of Malignant Hyperthermia: Denies - Medical History Cardiovascular: reports: Atrial fibrillation Pulmonary: reports: None Gastrointestinal: reports: GERD Urinary: reports: None Musculoskeletal: reports: None Endocrine/Autoimmune: reports: None Skin: reports: None Smoking Status: Never smoker - Surgical History General: reports: Cholecystectomy, Appendectomy Eyes Ears Nose Throat (EENT): reports: Tonsil/Adenoidectomy Exam General: Alert, Oriented x3, Cooperative, No acute distress Dental: Poor dentition Mouth Openin Fingerbreadth Neck Mobility: Normal Mallampati classification: II Plan Anesthesia Type: General, Total IV Consent for Procedure(s) Verified and Reviewed: Yes Code Status: Attempt Resuscitation ASA classification: 3-Severe systemic disease Is this case an emergency?: No
[2021-11-17] MEDS ORDERED: PROPOFOL 200 MG/20 ML VIAL IVP ONE (13:42)
[2021-11-17] MEDS ORDERED: LIDOCAINE-MPF 2% 5 ML VIAL ONE (13:42)
[2021-11-17] MEDS ORDERED: ePHEDrine 50 MG/ML VIAL IVP ONE (13:43)
[2021-11-17] MEDS ORDERED: GLYCOPYRROLATE 1 MG/5 ML VIAL ONE (13:43)
[2021-11-17 14:41] VITALS: BP 144/114
--- NOTE | 2021-11-17 17:59 | ANESTHESIA POST OP EVALUATION ---
Anesthesia Post Eval - Post Anesthesia Eval Vitals: Last Vital Signs Temp 36 C L 11/17/21 14:30 Pulse 88 11/17/21 14:30 Resp 16 11/17/21 14:30 BP 144/114 H 11/17/21 14:30 Pulse Ox 95 11/17/21 14:30 CV Function Including HR & BP: Stable Pain Control: Satisfactory Nausea & Vomiting: Negative Mental Status: Baseline Respiratory Status: Airway Patent Hydration Status: Satisfactory Anesthesia Complications: None
== END 2021-11-17 12:47 | disposition home or self-care (01) ==
LOC: SDS 12:46
PROVIDERS: ATTEND Surgery
PROC: 0DB38ZX Excision of Lower Esophagus, Via Natural or Artificial Opening Endoscopic, Diagnostic (ICD-10-PCS; principal; 2021-11-17 14:30)
DX: K21.9 Gastro-esophageal reflux disease without esophagitis (principal); K31.7 Polyp of stomach and duodenum; K44.9 Diaphragmatic hernia without obstruction or gangrene; I48.91 Unspecified atrial fibrillation; R53.83 Other fatigue
CPT/HCPCS: 43239; J7120

== ENCOUNTER 2022-01-26 07:20 | Day surgery (SDC) | payer MEDICARE, OTHER ==
[~2022-01-26 07:20] MED LIST: LACTATED RINGERS 1,000 ML IV ONE
[2022-01-26] MEDS ORDERED: PROPOFOL 500 MG/50 ML 500 MG/50 ML VIAL ONE (07:58)
--- NOTE | 2022-01-26 08:16 | ANESTHESIA ---
Pre-Anesthesia VS, & Labs - Diagnosis positive cologuard - Procedure colonoscopy Vital Signs: Temp Pulse Resp BP Pulse Ox 36 C L 95 20 160/110 H 97 01/26/22 07:32 01/26/22 07:32 01/26/22 07:32 01/26/22 07:32 01/26/22 07:32 Height: 6 ft 2 in Weight (kg): 98 kg Body Mass Index: 27.7 BMI Classification: Overweight - NPO >8 hours - Lab Results Lab results reviewed: Yes Home Medications and Allergies Lisinopril 40 mg PO DAILY 05/09/14 Esomeprazole Magnesium [Nexium] 20 mg PO DAILY 10/26/14 Rivaroxaban [Xarelto] 1 tab PO DAILY 09/17/18 allopurinoL [Allopurinol] 1 tab PO DAILY 09/17/18 amLODIPine [Norvasc] 1 tab PO DAILY 09/17/18 Allergies/Adverse Reactions: Allergies Allergy/AdvReac Type Severity Reaction Status Date / Time No Known Drug Allergies Allergy Verified 01/26/22 07:40 Anes History & Medical History - Anesthetic History Anesthesia Complications: reports: No previous complications Family history of Anesthesia Complications: Denies Family history of Malignant Hyperthermia: Denies - Medical History Cardiovascular: reports: Hypertension, Atrial fibrillation Pulmonary: reports: None, Other (pt sob with exertion) Gastrointestinal: reports: GERD Urinary: reports: None Musculoskeletal: reports: None Endocrine/Autoimmune: reports: None Skin: reports: None Smoking Status: Never smoker - Surgical History General: reports: Cholecystectomy Eyes Ears Nose Throat (EENT): reports: Tonsil/Adenoidectomy Exam General: Alert, Oriented x3, Cooperative, No acute distress Dental: WNL Mouth Openin Fingerbreadth Neck Mobility: Normal Mallampati classification: II Respiratory: Lungs clear, Normal breath sounds, No respiratory distress, No accessory muscle use Cardiovascular: No murmurs Plan Anesthesia Type: General, Total IV Consent for Procedure(s) Verified and Reviewed: Yes Code Status: Attempt Resuscitation ASA classification: 2-Mild systemic disease Is this case an emergency?: No
--- NOTE | 2022-01-26 08:25 | HISTORY & PHYSICAL EXAMINATION ---
Chief Complaint - Chief Complaint Chief Complaint: positive cologuard History of Present Illness - History Obtained From Records Reviewed: yes History obtained from: pt Exam Limitations: none - History of Present Illness HPI Comment/Other: positive cologuard. no colon symptoms. History - Past Medical History Cardiovascular: reports: Hypertension, Atrial fibrillation Respiratory: reports: None, Other (pt sob with exertion) Endocrine/Autoimmune: reports: None GI: reports: GERD : reports: None HEENT: reports: None Psych: reports: None Musculoskeletal: reports: None Derm: reports: None MRSA Hx?: No - Past Surgical History General: reports: Cholecystectomy HEENT: reports: Tonsil/Adenoidectomy - POLST Patient has POLST: No Meds/Allgy - Home Medications Home Medications: Ambulatory Orders Medication Instructions Recorded Confirmed Lisinopril 40 mg PO DAILY 05/09/14 01/25/22 Esomeprazole Magnesium [Nexium] 20 mg PO DAILY 10/26/14 01/25/22 Rivaroxaban [Xarelto] 1 tab PO DAILY 09/17/18 01/25/22 allopurinoL [Allopurinol] 1 tab PO DAILY 09/17/18 01/25/22 amLODIPine [Norvasc] 1 tab PO DAILY 09/17/18 01/25/22 - Allergies Allergies/Adverse Reactions: Allergies Allergy/AdvReac Type Severity Reaction Status Date / Time No Known Drug Allergies Allergy Verified 01/26/22 07:40 Review of Systems - Other Findings Other Findings: 10 pt ros as above otherwise unremarkable Exam - Vital Signs Reviewed Vital Signs: Yes Vital Signs: Vital Signs x48h Temp Pulse Resp BP Pulse Ox 01/26/22 07:32 36 C L 95 20 160/110 H 97 - Physical Exam General Appearance: positive: No acute distress, Alert Eyes Bilateral: positive: PERRL ENT: positive: No signs of dehydration Neck: positive: No JVD Respiratory: positive: Breath sounds nml Cardiovascular: positive: Regular rate & rhythm Abdomen: positive: Non-tender, No distention Neurologic/Psychiatric: positive: Oriented x3 Conclusion/Plan - Problem List (1) Abnormal stool test Conclusion/Plan: positive cologuard. plan colonoscopy. parq held and consent obtained - Lab Results Lab results reviewed: Yes
[2022-01-26] MEDS ORDERED: LIDOCAINE-MPF 2% 5 ML VIAL ONE (08:27)
[2022-01-26] MEDS ORDERED: LACTATED RINGERS 400 ML IV ONE (09:05)
[2022-01-26 10:31] VITALS: BP 122/92
--- NOTE | 2022-01-26 14:59 | ANESTHESIA POST OP EVALUATION ---
Anesthesia Post Eval - Post Anesthesia Eval Vitals: Last Vital Signs Temp 36.4 C L 01/26/22 10:10 Pulse 94 01/26/22 10:10 Resp 15 01/26/22 10:10 BP 122/92 H 01/26/22 10:10 Pulse Ox 95 01/26/22 10:10 CV Function Including HR & BP: Stable Pain Control: Satisfactory Nausea & Vomiting: Negative Mental Status: Baseline Respiratory Status: Airway Patent Hydration Status: Satisfactory Anesthesia Complications: None
== END 2022-01-26 07:21 | disposition home or self-care (01) ==
LOC: SDS 07:20
PROVIDERS: ATTEND Surgery
PROC: 0DBL8ZX Excision of Transverse Colon, Via Natural or Artificial Opening Endoscopic, Diagnostic (ICD-10-PCS; 2022-01-26)
PROC: 0DBN8ZX Excision of Sigmoid Colon, Via Natural or Artificial Opening Endoscopic, Diagnostic (ICD-10-PCS; principal; 2022-01-26 08:30)
DX: R19.5 Other fecal abnormalities (principal); D12.3 Benign neoplasm of transverse colon; K57.30 Diverticulosis of large intestine without perforation or abscess without bleeding; K63.5 Polyp of colon; K64.4 Residual hemorrhoidal skin tags; I10 Essential (primary) hypertension; I48.91 Unspecified atrial fibrillation; Z79.01 Long term (current) use of anticoagulants; Z79.899 Other long term (current) drug therapy
CPT/HCPCS: 45380; J7120

== ENCOUNTER 2022-07-25 12:13 | Outpatient (CLI) | payer MEDICARE, OTHER ==
--- NOTE | 2022-07-25 13:04 | XRAY Report ---
PROCEDURE: Chest 2 View X-Ray INDICATIONS: COUGH TECHNIQUE: 2 view(s) of the chest. COMPARISON: 06/05/2021 FINDINGS: Surgical changes and devices: None Lungs and pleura: Minimal left basilar atelectasis or infiltrate. Underlying chronic interstitial ch anges present. Low lung volumes accentuate pulmonary interstitium and heart size. Mediastinum: Mediastinal contours are normal. Heart size is enlarged. Bones and chest wall: No suspicious bony abnormalities. Soft tissues appear unremarkable. IMPRESSION: Left basilar atelectasis and/or infiltrate accentuated by low lung volumes Reviewed by: Brooks Valladares MD on 07/25/2022 12:02 PM ESTEFANÍA Approved by: Brooks Valladares MD on 07/25/2022 12:02 PM [id number] Station ID: [id number]
== END 2022-07-25 12:14 | disposition home or self-care (01) ==
LOC: DI 12:13
PROVIDERS: ATTEND Internal Medicine
DX: R91.8 Other nonspecific abnormal finding of lung field (principal); R05.1 Acute cough

== ENCOUNTER 2023-05-05 00:30 | Emergency (ER) | payer MEDICARE, OTHER ==
[2023-05-05] MEDS ORDERED: iohexoL-300 100 ML VIAL ONE (00:53)
[2023-05-05 00:58] LABS: BASOPHILS # (AUTO) 0.1 10^3/uL (0.0-0.1); BASOPHILS % (AUTO) 0.6 %; EOSINOPHILS # (AUTO) 0.3 10^3/uL (0.0-0.7); HCT - HEMATOCRIT 48.4 % (42.0-52.0); HGB - HEMOGLOBIN 16.6 g/dL (14.0-18.0); LYMPHOCYTES # (AUTO) 3.8 10^3/uL (1.5-3.5); LYMPHOCYTES % (AUTO) 34.8 %; MEAN CORPUSCULAR HEMOGLOBIN 32.6 pg (27.0-31.0); MEAN CORPUSCULAR HGB CONC 34.3 g/dL (32.0-36.0); MEAN CORPUSCULAR VOLUME 95.1 fL (80.0-94.0); MEAN PLATELET VOLUME 10.9 fL (7.4-11.4); MONOCYTES # (AUTO) 0.8 10^3/uL (0.0-1.0); MONOCYTES % (AUTO) 7.7 %; NEUTROPHILS # (AUTO) 5.8 10^3/uL (1.5-6.6); NEUTROPHILS % (AUTO) 53.3 %; PLT - PLATELET COUNT 237 10^3/uL (130-450); RED BLOOD COUNT 5.09 10^6/uL (4.70-6.10); RED CELL DISTRIBUTION WIDTH 15.2 % (12.0-15.0); WHITE BLOOD COUNT 10.8 x10^3/uL (4.8-10.8)
[2023-05-05 01:05] LABS: INR 1.3 (0.8-1.2); PT - PROTHROMBIN TIME 14.6 secs (9.9-12.6)
--- NOTE | 2023-05-05 01:08 | ED Physician Documentation ---
History of Present Illness - Stated complaint Stated Complaint: FACE NUMB/BALANCE - Chief complaint Chief Complaint: Neuro - Additonal information Additional information: Patient is 77-year-old male presenting to the emergency department with right- sided facial numbness and balance issues. Symptoms onset at approximately midnight tonight. Past medical significant for hypertension, dyslipidemia, chronic atrial fibrillation for which he takes Xarelto with last dose yesterday morning. States right-sided facial numbness without facial droop or speech difficulty as well as difficulties with balance. Denies weakness or numbness in the upper or lower extremities. Review of Systems Constitutional: denies: Fever Eyes: denies: Loss of vision Ears: denies: Loss of hearing Nose: denies: Rhinorrhea / runny nose Throat: denies: Dental pain / toothache Cardiac: denies: Chest pain / pressure Respiratory: denies: Dyspnea GI: denies: Abdominal Pain : denies: Dysuria Skin: denies: Rash Neurologic: reports: Numbness PD PAST MEDICAL HISTORY - Past Medical History Cardiovascular: Hypertension, Atrial fibrillation Respiratory: None, Other (pt sob with exertion) Endocrine/Autoimmune: None GI: GERD : None HEENT: None Psych: None Musculoskeletal: None Derm: None - Past Surgical History Past Surgical History: Yes General: Cholecystectomy HEENT: Tonsil/Adenoidectomy - Present Medications Home Medications: Ambulatory Orders Medication Instructions Recorded Confirmed Lisinopril 40 mg PO DAILY 05/09/14 01/25/22 Esomeprazole Magnesium [Nexium] 20 mg PO DAILY 10/26/14 01/25/22 Rivaroxaban [Xarelto] 1 tab PO DAILY 09/17/18 01/25/22 allopurinoL [Allopurinol] 1 tab PO DAILY 09/17/18 01/25/22 amLODIPine [Norvasc] 1 tab PO DAILY 09/17/18 01/25/22 - Allergies Allergies/Adverse Reactions: Allergies Allergy/AdvReac Type Severity Reaction Status Date / Time No Known Drug Allergies Allergy Verified 01/26/22 07:40 - Social History Does the pt smoke?: No Smoking Status: Never smoker Does the pt drink ETOH?: No Does the pt have substance abuse?: No - Immunizations Immunizations are current?: Yes - POLST Patient has POLST: No PD ED PE NORMAL - Vitals Vital signs reviewed: Yes - General General: Alert and oriented X 3, No acute distress, Well developed/nourished - HEENT HEENT: Atraumatic, PERRL, EOMI, Ears normal, Moist mucous membranes, Pharynx benign - Neck Neck: Supple, no meningeal sign, No bony TTP, No adenopathy, Thyroid normal, No JVD, No bruit, C-Spine cleared by NEXUS criteria - Cardiac Cardiac: RRR, No murmur, No gallop, No rub, Strong equal pulses - Respiratory Respiratory: No respiratory distress, Clear bilaterally, Other - Abdomen Abdomen: Normal bowel sounds, Non tender, No organomegaly - Male Male : Deferred - Rectal Rectal: Deferred - Back Back: No CVA TTP, No spinal TTP - Derm Derm: Normal color, Warm and dry - Extremities Extremities: No deformity - Neuro Neuro: Alert and oriented X 3, neurosurgical nurse 2-12 intact, No motor deficit, No sensory deficit, Normal speech Results - Vitals Vitals: Vital Signs - 24 hr 05/05/23 05/05/23 05/05/23 00:40 02:09 04:00 Temperature 36.4 C L Heart Rate 77 76 78 Respiratory 16 16 14 Rate Blood Pressure 155/103 H 142/100 H 167/126 H O2 Saturation 98 94 96 05/05/23 06:00 Temperature Heart Rate 74 Respiratory 16 Rate Blood Pressure 147/96 H O2 Saturation 98 Oxygen O2 Source Room air - EKG (time done) 0050 EKG releavant findings:: EKG personally interpreted by author of this note. Relevant findings are: Atrial fibrillation with rate 74 bpm. Normal axis. Normal QRS and QTc intervals. No ST segment elevations. Nonspecific ST-T wave abnormalities. - Labs Labs: Laboratory Tests 05/05/23 05/05/23 05/05/23 00:53 00:53 00:53 WBC 10.8 RBC 5.09 Hgb 16.6 Hct 48.4 MCV 95.1 H MCH 32.6 H MCHC 34.3 RDW 15.2 H Plt Count 237 MPV 10.9 Neut # (Auto) 5.8 Lymph # (Auto) 3.8 H [place] # (Auto) 0.8 Eos # (Auto) 0.3 Baso # (Auto) 0.1 Absolute Nucleated RBC 0.00 Nucleated RBC % 0.0 PT 14.6 H INR 1.3 H Sodium 141 Potassium 3.7 Chloride 111 Carbon Dioxide 22 Anion Gap 8.0 BUN 21 H Creatinine 1.0 Estimated GFR (MDRD) 73 L Glucose 137 H Calcium 9.1 Total Bilirubin 0.6 AST 19 ALT 24 Alkaline Phosphatase 56 Total Protein 6.7 Albumin 3.5 Globulin 3.2 Albumin/Globulin Ratio 1.1 Lipase 29 TSH Urine Color Urine Clarity Urine pH Ur Specific [place] Urine Protein Urine Glucose (UA) Urine Ketones Urine Occult Blood Urine Nitrite Urine Bilirubin Urine Urobilinogen Ur Leukocyte Esterase Ur Microscopic Review Urine Culture Comments Urine Opiates Screen Ur Oxycodone Screen Urine Methadone Screen Ur Propoxyphene Screen Ur Barbiturates Screen Ur Tricyclics Screen Ur Phencyclidine Scrn Ur Amphetamine Screen U Methamphetamines Scrn U Benzodiazepines Scrn Urine Cocaine Screen U Cannabinoids Screen Ethyl Alcohol < 5.0 05/05/23 05/05/23 00:53 02:21 WBC RBC Hgb Hct MCV MCH MCHC RDW Plt Count MPV Neut # (Auto) Lymph # (Auto) [place] # (Auto) Eos # (Auto) Baso # (Auto) Absolute Nucleated RBC Nucleated RBC % PT INR Sodium Potassium Chloride Carbon Dioxide Anion Gap BUN Creatinine Estimated GFR (MDRD) Glucose Calcium Total Bilirubin AST ALT Alkaline Phosphatase Total Protein Albumin Globulin Albumin/Globulin Ratio Lipase TSH 3.36 Urine Color YELLOW Urine Clarity CLEAR Urine pH 5.5 Ur Specific [place] 1.010 Urine Protein NEGATIVE Urine Glucose (UA) NEGATIVE Urine Ketones NEGATIVE Urine Occult Blood NEGATIVE Urine Nitrite NEGATIVE Urine Bilirubin NEGATIVE Urine Urobilinogen 0.2 (NORMAL) Ur Leukocyte Esterase NEGATIVE Ur Microscopic Review NOT INDICATED Urine Culture Comments NOT INDICATED Urine Opiates Screen NEGATIVE Ur Oxycodone Screen NEGATIVE Urine Methadone Screen NEGATIVE Ur Propoxyphene Screen NEGATIVE Ur Barbiturates Screen NEGATIVE Ur Tricyclics Screen NEGATIVE Ur Phencyclidine Scrn NEGATIVE Ur Amphetamine Screen NEGATIVE U Methamphetamines Scrn NEGATIVE U Benzodiazepines Scrn NEGATIVE Urine Cocaine Screen NEGATIVE U Cannabinoids Screen NEGATIVE Ethyl Alcohol PD Medical Decision Making - ED course Complexity details: reviewed old records, reviewed results, re-evaluated patient, considered differential, d/w patient, d/w hr business partner consultant ED course: Less thanPatient is 77-year-old male presenting to the emergency department with right-sided facial numbness and balance difficulties. Arrived approximately 1 hour after the onset of his symptoms. Notably is on Xarelto with last dose 1 day ago. He is therefore not a candidate for tPA. No stroke code initiated. No focal or lateralizing neurologic deficits appreciated on my exam although he did continue to endorse for persistent right-sided numbness. He did state that his symptoms were also improved from where they had been previously. EKG is on above was negative for indications of acute cardiac ischemia or dysrhythmia. Comprehensive labs and urine analysis within normal limits. 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 On reevaluation patient reported that he felt improved but still stated that he was having right-sided facial numbness as well as difficulties with balance. He was noted to be able to ambulate here in the emergency department without difficulty. Nevertheless given his stated and reported ongoing symptoms I did obtain consultation from Dr. Zhao, Neurology with [place]. Specific recommendations per neurology are the following: Hold anticoagulation and initiate 81 mg aspirin. Obtain an MRI or repeat head CT in 24 hours. Obtain echocardiogram. If there is no indication of severe or massive stroke on repeat head CT or MRI transition back off of aspirin and onto a novel oral anticoagulate with recommendation to transition from Xarelto to Eliquis in 3 to 5 days. Neither echocardiogram nor MRI are available at our facility. I did discuss the care with the emergency department at [facility] and their recommendation was to speak with their hospitalist concerning possible transfer for repeat head imaging and echocardiogram. At this time there are an extremely limited number of hospital beds regionally including beds of facilities with the diagnostic services recommended per neurology. We will be signing the patient out to the oncoming physician, please see their documentation for further detail. Departure - Departure Clinical Impression: Stroke-like symptoms
[2023-05-05 01:15] LABS: ALBUMIN 3.5 g/dL (3.2-5.5); ALBUMIN/GLOBULIN RATIO 1.1 (1.0-2.2); ALKALINE PHOSPHATASE 56 IU/L (42-121); ALT ALANINE AMINOTRANSFERASE 24 IU/L (10-60); AST ASPARTATE AMINOTRANSFERASE 19 IU/L (10-42); BILIRUBIN,TOTAL 0.6 mg/dL (0.2-1.0); BUN - BLOOD UREA NITROGEN 21 mg/dL (6-20); CALCIUM 9.1 mg/dL (8.5-10.3); CARBON DIOXIDE - CO2 22 mmol/L (21-32); CHLORIDE 111 mmol/L (101-111); ETOH - ETHANOL < 5.0 mg/dL; GFR - MDRD 73 (>89); GLUCOSE 137 mg/dL (70-100); LIPASE 29 U/L (22-51); POTASSIUM 3.7 mmol/L (3.5-5.0); SODIUM 141 mmol/L (135-145); TOTAL PROTEIN 6.7 g/dL (6.7-8.2)
[2023-05-05 02:27] LABS: MUDS CUTOFF CONCENTRATIONS CUTOFF CONC BELOW:
[2023-05-05 02:30] LABS: BILIRUBIN,URINE NEGATIVE (NEGATIVE); GLUCOSE, URINE (UA) NEGATIVE (NEGATIVE); KETONES,URINE (UA) NEGATIVE (NEGATIVE); LEUKOCYTE ESTERASE, URINE NEGATIVE (NEGATIVE); NITRITE,URINE NEGATIVE (NEGATIVE); OCCULT BLOOD,URINE NEGATIVE (NEGATIVE); PH,URINE 5.5 PH (5.0-7.5); PROTEIN,URINE NEGATIVE (NEGATIVE); UROBILINOGEN,URINE 0.2 (NORMAL) E.U./dL (NORMAL)
[2023-05-05 02:31] LABS: CLARITY,URINE CLEAR (CLEAR)
[2023-05-05] MEDS ORDERED: iohexoL-300 100 ML VIAL IVP ONE (02:40)
[2023-05-05 02:41] LABS: AMPHETAMINE SCREEN,URINE NEGATIVE (NEGATIVE); BARBITURATE SCREEN,UR NEGATIVE (NEGATIVE); BENZODIAZEPINES SCREEN, URINE NEGATIVE (NEGATIVE); COCAINE SCREEN URINE NEGATIVE (NEGATIVE); METHADONE SCREEN, URINE NEGATIVE (NEGATIVE); METHAMPHETAMINES SCREEN, URINE NEGATIVE (NEGATIVE); OPIATE SCREEN, URINE NEGATIVE (NEGATIVE); OXYCODONE SCREEN, URINE NEGATIVE (NEGATIVE); PROPOXYPHENE SCREEN, URINE NEGATIVE (NEGATIVE); THC CANNABINOID SCREEN, URINE NEGATIVE (NEGATIVE); TRICYCLIC ANTIDEPRESSANT,URINE NEGATIVE (NEGATIVE)
[2023-05-05] MEDS ORDERED: ASPIRIN EC 81 MG TABLET PO SCH (09:00)
--- NOTE | 2023-05-05 09:03 | CT Report ---
PROCEDURE: ANGIO NECK W INDICATIONS: L sided facial droop, L neck pain CONTRAST: Omni 300 80ml TECHNIQUE: After the administration of intravenous contrast, 1.5 mm axial sections acquired from the aortic arch to the [place]. Coronal 3-D maximum intensity projection (MIP) and/or volume rendering ref ormats were then performed. For radiation dose reduction, the following was used: automated exposur e control, adjustment of mA and/or kV according to patient size. COMPARISON: None. FINDINGS: Image quality: Excellent. Carotid system: The left carotid bifurcation is widened suggesting prior endarterectomy. Slightly dim inished attenuation at the carotid bifurcation was present on the prior study and is less conspicuous currently. This could be related to flow artifact versus chronic small dissection flap. Posterior circulation: The origins of the vertebral arteries appear patent. The left vertebral georgie ry is dominant. The more superior portions of the vertebral arteries demonstrate normal course and ca liber. They join to form a normal appearing basilar artery. Soft tissues: Visualized neck soft tissues demonstrate no suspicious abnormalities. The thyroid is normal in size and there are no incidental findings. Bones: No suspicious bony lesions. Visualized cervical spine appears normally aligned. IMPRESSION: 1. Patent neck CTA with no acute findings. 2. Slightly less pronounced, somewhat linear diminished attenuation seen within the left carotid georgie ry bifurcation which may be due to flow artifact or a chronic dissection flap. Findings above correspond with preliminary findings by [facility]. The estimate of stenosis included in the report of the imaging study was calculated using the NASCET method Reviewed by: Syed Gibson on 05/05/2023 8:01 AM ESTEFANÍA Approved by: Syed Gibson on 05/05/2023 8:01 AM ESTEFANÍA Station ID: [id number]
[2023-05-05 10:28] VITALS: BP 161/110
--- NOTE | 2023-05-05 15:24 | CT Report ---
PROCEDURE: ANGIO HEAD W/WO INDICATIONS: L sided facial droop CONTRAST: Omni 300 80ml TECHNIQUE: Precontrast 4.5 mm thick angled axial sections acquired from the foramen magnum to the vertex. Afte r the administration of intravenous contrast, 1 mm thick sections acquired through the [place] of [place] is. Postcontrast 4.5 mm thick sections then re-acquired from the foramen magnum to the vertex. 3-di mensional upyavlo-sdqlczica-kvpbdehgsg (MIP) and/or volume rendering reformats were acquired of the c entral intracranial vasculature. For radiation dose reduction, the following was used: automated ex posure control, adjustment of mA and/or kV according to patient size. COMPARISON: None FINDINGS: Image quality: Excellent. Anterior circulation: Intracranial internal carotid arteries are normal in size and flow. The flow within the paired anterior cerebral arteries is normal and symmetric. The flow within the middle cer ebral arteries is normal and symmetric. The anterior communicating artery is seen. No aneurysms are seen. Posterior circulation: Visualized portions of the vertebral arteries demonstrate normal caliber, and join to form a normal appearing basilar artery. Flow within the posterior cerebral arteries is norm al and symmetric. No aneurysms are seen. CSF spaces: Ventricles are normal in size and shape. Basal cisterns are patent. No extra-axial flu id collections. Brain: No midline shift. No intracranial bleeds or masses. Resendiz-white matter interface appears int act. Skull and face: Calvarium and facial bones appear intact, without suspicious lesions. Sinuses: Visualized sinuses and mastoids are clear. IMPRESSION: No large vessel occlusion. 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 Findings above correspond with preliminary findings by [facility]. Reviewed by: Syed Gibson on 05/05/2023 2:23 PM ESTEFANÍA Approved by: Syed Gibson on 05/05/2023 2:23 PM AKKAMLA Station ID: [id number]
== END 2023-05-05 10:36 | disposition left against medical advice (07) ==
LOC: ED 00:30
DX: R20.2 Paresthesia of skin (principal); R26.81 Unsteadiness on feet; I10 Essential (primary) hypertension; I48.91 Unspecified atrial fibrillation; Z79.01 Long term (current) use of anticoagulants; Z79.899 Other long term (current) drug therapy
CPT/HCPCS: 36415; 70496; 70498; 80053; 80306; 81003; 83690; 84443; 85025; 85610; 93005; 99284; A9270; G0480; Q9967; 80320; 81001; 87086

== ENCOUNTER 2023-05-29 01:26 | Outpatient (CLI) | payer MEDICARE, OTHER | END 2023-05-29 23:53 | disposition short-term general hospital (02) | LOC: EMS 01:26 | DX: R07.89 Other chest pain (principal); R06.02 Shortness of breath | CPT/HCPCS: A0425; A0429; A0888 ==